=== PATIENT | female | born 1960 | race Caucasian/White ===

== ENCOUNTER 2021-07-28 21:03 | Emergency (ER) | payer BC, OTHER ==
[~2021-07-28] VITALS: Ht 154.9 cm; Wt 63.5 kg
[~2021-07-28 21:03] MED LIST: AMLODIPINE BESY10 MG PO; BENICAR20 MG PO; CLONIDINE1 EAC1 PO; OXCARBAZEPINE600 MG PO; PANTOPRAZOLE SO20 MG PO; PROZAC20 MG PO; SYNTHROID150 MCG
[2021-07-28] MEDS ORDERED: LAMICTAL100 MG PO (22:16)
[2021-07-28] MEDS ORDERED: CATAPRES-TTS 11 EACH TD (22:16)
[2021-07-28] MEDS ORDERED: ATORVASTATIN CA10 MG PO (22:16)
[2021-07-28] MEDS ORDERED: MECLIZINE HCL12.5 MG PO (22:16)
[2021-07-28] MEDS ORDERED: ESCITALOPRAM OX20 MG (22:16)
[2021-07-28] MEDS ORDERED: POTASSIUM CITR10 MEQ PO (22:16)
[2021-07-28] MEDS ORDERED: NAMENDA10 MG PO (22:16)
[2021-07-28] MEDS ORDERED: OMEPRAZOLE40 MG PO (22:16)
[2021-07-28] MEDS ORDERED: FOLIVANE-F CAP1 EACH (22:16)
[2021-07-28] MEDS ORDERED: HYDROCHLOROTHIA25 MG (22:16)
[2021-07-28] MEDS ORDERED: NEPHRO-VITE TABL1 EA PO (22:16)
[2021-07-28] MEDS ORDERED: LEVOTHYROXINE100 MC1 IV (22:16)
[2021-07-28] MEDS ORDERED: CLOPIDOGREL75 MG PO (22:16)
[2021-07-28] MEDS ORDERED: LAMOTRIGINE100 MG PO (22:16)
[2021-07-28] MEDS ORDERED: SPIRONOLACTONE25 MG PO (22:16)
[2021-07-28] MEDS ORDERED: FAMOTIDINE20 MG PO (22:16)
[2021-07-28] MEDS ORDERED: SODIUM CHLORIDE 0.9% 1000ML 1,000 ML IV STA ×2 (22:46→23:47)
[2021-07-28 23:02] LABS: BASOPHILS # (AUTO) 0.1 (0.0-0.1); BASOPHILS % 1.5 % (0.0-1.0); EOSINOPHILS # (AUTO) 0.6 (0.0-0.4); EOSINOPHILS % 7.5 % (0.0-6.0); HEMATOCRIT 43.6 % (34.2-44.1); HEMOGLOBIN 14.9 g/dL (12.0-16.0); LYMPHOCYTES # (AUTO) 2.2 (1.0-3.2); LYMPHOCYTES % 26.7 % (18.0-39.1); MEAN CORPUSCULAR HEMOGLOBIN 32.1 pg (28-32); MEAN CORPUSCULAR HGB CONC 34.2 g/dL (31-35); MONOCYTES # (AUTO) 0.7 (0.2-0.8); MONOCYTES % 8.5 % (4.4-11.3); NEUTROPHILS # (AUTO) 4.5 (2.1-6.9); NEUTROPHILS % 55.3 % (38.7-80.0); PLATELET COUNT 221 x10e3/uL (140-360); RED BLOOD COUNT 4.64 x10e6/uL (3.6-5.1)
[2021-07-28 23:21] LABS: ALANINE AMINOTRANSFERASE 34 IU/L (0-55); ALBUMIN 4.4 g/dL (3.5-5.0); ALKALINE PHOSPHATASE 81 IU/L (40-150); ANION GAP 16.1 mmol/L (8-16); BLOOD UREA NITROGEN 13 mg/dL (7-26); BUN/CREATININE RATIO 8 (6-25); CALCIUM 11.2 mg/dL (8.4-10.2); CARBON DIOXIDE 28 mmol/L (22-29); CHLORIDE 96 mmol/L (98-107); CREATINE KINASE 870 IU/L (29-168); CREATININE, SERUM 1.58 mg/dL (0.57-1.11); EST GLOMERULAR FILTRATION RATE 33 ML/MIN (60-); GLUCOSE 199 mg/dL (74-118); POTASSIUM 4.1 mmol/L (3.5-5.1); SODIUM 136 mmol/L (136-145)
[2021-07-29 00:21] LABS: CLARITY,URINE CLEAR (CLEAR); COLOR,URINE YELLOW (YELLOW); KETONES,URINE NEGATIVE (NEGATIVE); LEUKOCYTE ESTERASE ,URINE NEGATIVE (NEGATIVE); NITRITE,URINE NEGATIVE (NEGATIVE); PROTEIN,URINE DIPSTICK 1+ (NEGATIVE); URINE UROBILINOGEN 0.2 mg/dL (0.2 - 1)
[2021-07-29 00:23] LABS: BACTERIA,URINE FEW /HPF; EPITHELIAL CELLS,URINE MODERATE /LPF; RBC,URINE 0-5 /HPF (0-5); WBC,URINE (MAN) 0-5 /HPF (0-5)
[2021-07-29 00:24] LABS: MUCUS,URINE FEW (RARE)
[2021-07-29 03:57] LABS: ALBUMIN 3.6 g/dL (3.5-5.0); ANION GAP 11.6 mmol/L (8-16); CALCIUM 8.7 mg/dL (8.4-10.2); CREATININE, SERUM 1.26 mg/dL (0.57-1.11); POTASSIUM 3.6 mmol/L (3.5-5.1)
[2021-07-29 04:09] VITALS: BP 172/90
== END 2021-07-29 04:30 | disposition home or self-care (01) ==
LOC: ER 21:14
DX: E86.0 Dehydration (principal); N17.9 Acute kidney failure, unspecified; R94.4 Abnormal results of kidney function studies; R42 Dizziness and giddiness; I10 Essential (primary) hypertension; F03.90 Unspecified dementia, unspecified severity, without behavioral disturbance, psychotic disturbance, mood disturbance, and anxiety; E78.5 Hyperlipidemia, unspecified; E03.9 Hypothyroidism, unspecified; G40.909 Epilepsy, unspecified, not intractable, without status epilepticus; D64.9 Anemia, unspecified; Z86.73 Personal history of transient ischemic attack (TIA), and cerebral infarction without residual deficits
CPT/HCPCS: 36415; 70450; 71045; 80053; 81001; 82550; 82553; 84484; 85025; 93005; 99284; J7030